=== PATIENT | male | born 1940 | race Caucasian/White ===

== ENCOUNTER 2025-10-16 22:43 | Emergency (ER) | payer MEDICARE, OTHER | END 2025-10-16 23:53 | disposition home or self-care (01) | LOC: BURERS 22:43 | DX: S16.1XXA Strain of muscle, fascia and tendon at neck level, initial encounter (principal); S00.03XA Contusion of scalp, initial encounter; I10 Essential (primary) hypertension; W10.9XXA Fall (on) (from) unspecified stairs and steps, initial encounter; Y92.009 Unspecified place in unspecified non-institutional (private) residence as the place of occurrence of the external cause | CPT/HCPCS: 70450; 72125; G0390 ==